=== PATIENT | male | born 1975 | race Two or more races ===

== ENCOUNTER 2017-03-22 16:28 | Emergency (ER) | payer MEDICAID ==
[~2017-03-22] VITALS: Wt 113.3 kg
[~2017-03-22 16:28] MED LIST: CEPH-443 PO; HYDR-906 PO; IBUP-1542 PO
--- NOTE | 2017-03-22 19:23 | ERD ---
ER Documentation Chief Complaint Chief Complaint WOUND CHECK ON LEFT MIDDLE FINGER HPI This 41-year-old male presents for wound check 3 days after he sustained a laceration to his middle finger cutting with a saw. I reviewed his EMR and see that he had a distal tuft fracture. He was discharged with Keflex and Tylenol. The pain is decreased he has no fevers or chills. Has not yet removed the dressing or splint from the last time.. ROS All systems reviewed and are negative except as per history of present illness. Medications Home Meds Active Scripts Ibuprofen* (Motrin*) 600 Mg Tab, 600 MG PO Q6, #15 TAB Prov:MICH PERAZA MD 03/20/17 Hydrocodone/Acetaminophen ([place] 5-325 Tablet) 1 Each Tablet, 1 TAB PO Q6H Y for PAIN, #7 TAB Prov:MICH PERAZA MD 03/20/17 Cephalexin* (Keflex*) 500 Mg Capsule, 500 MG PO QID for 7 Days, CAP Prov:MICH PERAZA MD 03/20/17 Allergies Allergies: Coded Allergies: No Known Allergy (Unverified , 03/20/17) PMhx/Soc History of Surgery: No Anesthesia Reaction: No Hx Neurological Disorder: No Hx Respiratory Disorders: No Hx Cardiac Disorders: No Hx Psychiatric Problems: No Hx Miscellaneous Medical Probl: No Hx Alcohol Use: Yes Hx Substance Use: No Hx Tobacco Use: Yes Smoking Status: Current every day smoker Physical Exam Vitals Vital Signs Date Time Temp Pulse Resp B/P Pulse Ox O2 Delivery O2 Flow Rate FiO2 03/22/17 16:44 98.0 109 17 144/93 98 Physical Exam Const: [] No distress Ext: Mild edema past the PIP joint of the affected finger. Well-healing laceration with slight erythema on the edges. He has very slight tissue necrosis on the flap edge. Capillary refill less than 1 second. Neur: Awake and alert oriented 3, no focal deficits Psych: Normal Mood and Affect Procedures/MDM Healing finger laceration however given the open nature of the laceration as well as the beginning of possible very mild necrosis I believe that is best served seeing facility with hand specialist for evaluation as an outpatient. Dressing was changed with resplinted. I am going to discharge him with Bactrim in addition to his Keflex as well as [facility] clinic follow-up strict return precautions the ER for any fevers, worsening pain or any concerning symptoms. Departure Diagnosis: Primary Impression: Encounter for wound re-check Condition: CORA Guzman DO Mar 22, 2017 19:23
[2017-03-22] MEDS ORDERED: SULF1TAB31 PO (19:24)
== END 2017-03-22 19:38 | disposition home or self-care (01) ==
LOC: FTE 16:28
DX: R60.0 Localized edema (principal); F17.210 Nicotine dependence, cigarettes, uncomplicated
CPT/HCPCS: 99283

== ENCOUNTER 2017-03-31 16:19 | Emergency (ER) | payer MEDICAID ==
[~2017-03-31] VITALS: Ht 157.5 cm; Wt 110.7 kg
[~2017-03-31 16:19] MED LIST changes: +SULF1TAB31 PO
[2017-03-31 16:26] VITALS: Ht 157.5 cm; Wt 110.7 kg
--- NOTE | 2017-03-31 18:16 | ERD ---
ER Documentation Chief Complaint Chief Complaint patient here for a recheck of finger pain HPI 41-year-old male patient with no significant past medical history presents to the ED complaining of a recheck for his middle finger laceration of his left hand. Patient reports that he has been taking all of his antibiotics. States that he has not followed up with an orthopedic physician or hand clinic. Denies any fever, chills, nausea, vomiting, loss of sensation, loss of range of motion, increased redness or swelling. ROS All systems reviewed and are negative except as per history of present illness. Medications Home Meds Active Scripts Sulfamethoxazole/Trimethoprim* (Bactrim Ds* Tablet) 1 Each Tablet, 1 TAB PO BID , #20 TAB Prov:CORA ROGERS DO 03/22/17 Ibuprofen* (Motrin*) 600 Mg Tab, 600 MG PO Q6, #15 TAB Prov:MICH VARGAS MD 03/20/17 Hydrocodone/Acetaminophen ([place] 5-325 Tablet) 1 Each Tablet, 1 TAB PO Q6H Y for PAIN, #7 TAB Prov:MICH VARGAS MD 03/20/17 Cephalexin* (Keflex*) 500 Mg Capsule, 500 MG PO QID for 7 Days, CAP Prov:MICH VARGAS MD 03/20/17 Allergies Allergies: Coded Allergies: No Known Allergy (Unverified , 03/20/17) PMhx/Soc History of Surgery: No Anesthesia Reaction: No Hx Neurological Disorder: No Hx Respiratory Disorders: No Hx Cardiac Disorders: No Hx Psychiatric Problems: No Hx Miscellaneous Medical Probl: No Hx Alcohol Use: Yes Hx Substance Use: No Hx Tobacco Use: Yes Physical Exam Vitals Vital Signs Date Time Temp Pulse Resp B/P Pulse Ox O2 Delivery O2 Flow Rate FiO2 03/31/17 16:26 98.6 99 20 130/74 100 Physical Exam Const: [id number], well-nourished. In no acute distress. Head: Atraumatic, normocephalic Eyes: Normal Conjunctiva without injection ENT: Normal external ear, nose and mouth. Neck: Full range of motion. No meningismus. Resp: Clear to auscultation bilaterally. No wheezing, rhonchi, rales, or crackles. No accessory muscle use. No retractions. Cardio: Regular rate and rhythm, no murmurs Skin: No petechiae or rashes Back: No midline tenderness. No CVA tenderness. Ext: No cyanosis, or edema. Cap refill less than 2 seconds. Distal pulses intact bilaterally. 2.6 cm laceration on the volar aspect of patient's left middle finger with slight blackening surrounding the laceration site above the DIP. No dehiscence. No purulent discharge. No erythema or edema. No deformities. Full range of motion of the DIP, PIP, MCP joints bilaterally. 8 sutures were noted keeping the laceration intact. Neur: Awake and alert. Normal gait and coordination. Muscle strength 5/5. Sensation intact bilaterally. Psych: Normal Mood and Affect Procedures/MDM 41-year-old male patient with no significant past medical history presents to the ED complaining of a laceration to his left middle finger. Patient is afebrile and nontoxic-appearing. Patient has normal vital signs. This case was discussed with my supervising physician, Dr. Vargas who also evaluated patient at this time. Patient has an open tuft fracture and has not followed up with a hand clinic/orthopedic physician. Patient has slight necrosis surrounding the laceration site likely superficial and will slough off and is instructed strictly to follow-up with a hand clinic. Sensation intact. Cap refill < 2 seconds. Full range of motion noted with DIP, PIP, MCP joints. Patient is neurovascular intact. Patient is placed in a metal finger splint. Splint Assessment: Neurovascularly intact pre and post splint placement with good fit. He completed all of his antibiotics. There is low suspicion for deep space infection, cellulitis. Patient's extremity symptoms have stabilized while they have been evaluated in the department and are appropriate for outpatient follow up. No evidence of dislocations, compartment syndrome, neurologic injury, vascular injury, open joint, tendon laceration, septic arthritis, osteomyelitis, DVT, foreign body, or other emergent conditions. Follow up with clinic within 24-48 hours. Instructed patient to return to the ED sooner for any worsening symptoms. Patient's questions were answered. Patient understood and agreed with discharge plan. Patient discharged stable. Departure Diagnosis: Primary Impression: Visit for suture removal Condition: Stable Patient Instructions: Fracture, Finger (Open), Suture Removal, No Complication Referrals: [facility] YOU HAVE RECEIVED A MEDICAL SCREENING EXAM AND THE RESULTS INDICATE THAT YOU DO NOT HAVE A CONDITION THAT REQUIRES URGENT TREATMENT IN THE EMERGENCY DEPARTMENT. FURTHER EVALUATION AND TREATMENT OF YOUR CONDITION CAN WAIT UNTIL YOU ARE SEEN IN YOUR DOCTORS OFFICE WITHIN THE NEXT 1-2 DAYS. IT IS YOUR RESPONSIBILITY TO MAKE AN APPOINTMENT FOR FOLOW-UP CARE. IF YOU HAVE A PRIMARY DOCTOR --you should call your primary doctor and schedule an appointment IF YOU DO NOT HAVE A PRIMARY DOCTOR YOU CAN CALL OUR PHYSICIAN REFERRAL HOTLINE AT IF YOU CAN NOT AFFORD TO SEE A PHYSICIAN YOU CAN CHOSE FROM THE FOLLOWING [facility] [address] [facility] [address] [facility] [facility] [address] [facility] [facility] [address] [facility] [address] [facility] [address]. [facility] [address] [facility]. [facility] YOU HAVE RECEIVED A MEDICAL SCREENING EXAM AND THE RESULTS INDICATE THAT YOU DO NOT HAVE A CONDITION THAT REQUIRES URGENT TREATMENT IN THE EMERGENCY DEPARTMENT. FURTHER EVALUATION AND TREATMENT OF YOUR CONDITION CAN WAIT UNTIL YOU ARE SEEN IN YOUR DOCTORS OFFICE WITHIN THE NEXT 1-2 DAYS. IT IS YOUR RESPONSIBILITY TO MAKE AN APPOINTMENT FOR FOLOW-UP CARE. IF YOU HAVE A PRIMARY DOCTOR --you should call your primary doctor and schedule and appointment IF YOU DO NOT HAVE A PRIMARY DOCTOR YOU CAN CALL OUR PHYSICIAN REFERRAL HOTLINE AT . IF YOU CAN NOT AFFORD TO SEE A PHYSICIAN YOU CAN CHOSE FROM THE FOLLOWING [facility] INSTITUTIONS: [facility] [address] [place] [address] [facility] [address] [place] [address] LOCATED WITHIN [facility] + [facility] [address] [place] [address] [facility] Urgent Care 7 a.m.- 11 p.m. Every Day of the Week NO APPOINTMENT OR AUTHORIZATION NEEDED SO [facility] Hours: Mon-Fri 9:00 AM - 5:00 PM Additional Instructions: Usted debe seguir para la clnica de la mano en el plazo de 24-28 horas. Regrese a estas instalaciones si no se mejora damaris esperbamos o damaris le dijimos. LELA JOEL PA-C Mar 31, 2017 18:16 LELA JOEL PA-C Mar 31, 2017 18:16
== END 2017-03-31 19:00 | disposition home or self-care (01) ==
LOC: FTE 16:19
DX: Z48.02 Encounter for removal of sutures (principal); Z87.891 Personal history of nicotine dependence
CPT/HCPCS: 29130; Z7502

== ENCOUNTER 2017-08-12 12:57 | Emergency (ER) | END 2017-08-12 14:28 | disposition home or self-care (01) ==

== ENCOUNTER 2018-10-08 14:23 | Emergency (ER) | payer MEDICAID, OTHER ==
[~2018-10-08] VITALS: Ht 162.6 cm; Wt 110.0 kg
[~2018-10-08 14:23] MED LIST changes: +DOXY100T20 PO; +HYDR-4011 PO; -HYDR-906 PO
[2018-10-08 14:50] VITALS: BP 150/76; PULSE 110; RESP 18; Ht 162.6 cm; Wt 110.0 kg
[2018-10-08] MEDS ORDERED: FLUC100T39 PO (17:10)
--- NOTE | 2018-10-08 17:12 | ERD ---
ER Documentation Chief Complaint Chief Complaint OCCIPITAL HEAD HAIR/SCALP MASS WITH PAIN HPI 43-year-old male presents for bumps on his scalp x3 weeks. He states that the bumps on the back of the head on the scalop and are itchy. He states that there is also pain. The pain is rated 5 out of 10. He denies any fevers or chills. No trauma. No prior similar symptoms. Denies significant past medical history. No treatments tried at home. No other modifying factors noted. ROS All systems reviewed and are negative except as per history of present illness. Medications Home Meds Active Scripts Fluconazole* (Fluconazole*) 100 Mg Tablet, 100 MG PO DAILY for scalp infection for 10 Days, #10 TAB Prov:BRETT HIGGINBOTHAM DO 10/08/18 Ibuprofen* (Motrin*) 600 Mg Tab, 600 MG PO Q6, #20 TAB Prov:MICH PERAZA MD 08/12/17 Doxycycline Hyclate* (Doxycycline Hyclate*) 100 Mg Tablet.dr, 100 MG PO BID for 10 Days, TAB Prov:MICH PERAZA MD 08/12/17 Sulfamethoxazole/Trimethoprim* (Bactrim Ds* Tablet) 1 Each Tablet, 1 TAB PO BID, #20 TAB Prov:TOÑA ROGERSSHMARY PALOMO 03/22/17 Ibuprofen* (Motrin*) 600 Mg Tab, 600 MG PO Q6, #15 TAB Prov:MICH PERAZA MD 03/20/17 Hydrocodone/Acetaminophen ([place] 5-325 Tablet) 1 Each Tablet, 1 TAB PO Q6H PRN for PAIN, #7 TAB Prov:MICH PERAZA MD 03/20/17 Cephalexin* (Keflex*) 500 Mg Capsule, 500 MG PO QID for 7 Days, CAP Prov:MICH PERAZA MD 03/20/17 Allergies Allergies: Coded Allergies: No Known Allergy (Unverified , 03/20/17) PMhx/Soc History of Surgery: No Anesthesia Reaction: No Hx Neurological Disorder: No Hx Respiratory Disorders: No Hx Cardiac Disorders: No Hx Psychiatric Problems: No Hx Miscellaneous Medical Probl: No Hx Alcohol Use: Yes Hx Substance Use: No Hx Tobacco Use: Yes (5 cigs) Smoking Status: Current every day smoker FmHx Family History: No coronary disease Physical Exam Vitals Vital Signs Date Temp Pulse Resp B/P (MAP) Pulse Ox O2 O2 Flow FiO2 Time Delivery Rate 10/08/18 98.3 110 18 150/76 97 14:50 (100) Physical Exam Const: No acute distress Head: Atraumatic, there are multiple soft nodules over the posterior head and scalp area with some dryness, erythema Eyes: Normal Conjunctiva ENT: Normal External Ears, Nose and Mouth. Neck: Full range of motion. No meningismus. Resp: Clear to auscultation bilaterally Cardio: Regular rate and rhythm, no murmurs Skin: No petechiae or rashes Ext: No cyanosis, or edema Neur: Awake and alert Psych: Normal Mood and Affect Procedures/MDM Medical Decision Making: Differential diagnosis includes but not limited to fungal Infection, viral infection, folliculitis, contact dermatitis Patient appeared well on physical exam. Physical examination of the posterior scalp area consistent with a fungal infection Prescription(s): Patient given prescription for antifungal medication Patient advised that he may need follow-up with maintenance parts technician as an outpatient if the symptoms do not improve. Patient advised to follow up with PCP in 1-2 days. Patient advised to return to ED for new or worsening symptoms. Patient stable on discharge from the ED. Disclaimer: Inadvertent spelling and grammatical errors are likely due to EHR/dictation software use and do not reflect on the overall quality of patient care. Also, please note that the electronic time recorded on this note does not necessarily reflect the actual time of the patient encounter. Departure Diagnosis: Primary Impression: Skin lesion of scalp Condition: Fair Patient Instructions: Fungal Infection, Skin [General] Referrals: [facility] YOU HAVE RECEIVED A MEDICAL SCREENING EXAM AND THE RESULTS INDICATE THAT YOU DO NOT HAVE A CONDITION THAT REQUIRES URGENT TREATMENT IN THE EMERGENCY DEPARTMENT. FURTHER EVALUATION AND TREATMENT OF YOUR CONDITION CAN WAIT UNTIL YOU ARE SEEN IN YOUR DOCTORS OFFICE WITHIN THE NEXT 1-2 DAYS. IT IS YOUR RESPONSIBILITY TO MAKE AN APPOINTMENT FOR FOLOW-UP CARE. IF YOU HAVE A PRIMARY DOCTOR --you should call your primary doctor and schedule an appointment IF YOU DO NOT HAVE A PRIMARY DOCTOR YOU CAN CALL OUR PHYSICIAN REFERRAL HOTLINE AT IF YOU CAN NOT AFFORD TO SEE A PHYSICIAN YOU CAN CHOSE FROM THE FOLLOWING [facility] [address] [facility]. [facility] [address] [facility] [facility] [address] [facility] [address] [facility]. [facility] [address] [facility] [facility] [address] Additional Instructions: Llame al doctor MAANA y jreel cassia KRYSTINA PARA DENTRO DE 1-2 HELMS.Dgale a la secretaria que nosotros le instruimos hacer esta krystina.Avise o llame si burger condicin se empeora antes de la krystina. Regresa aqui si peor o no mejor. BRETT HIGGINBOTHAM DO October 08, 2018 17:12
== END 2018-10-08 17:17 | disposition home or self-care (01) ==
LOC: FTE 14:23
DX: L98.9 Disorder of the skin and subcutaneous tissue, unspecified (principal)
CPT/HCPCS: 99283